=== PATIENT | male | born 1955 | race Hispanic/Latino ===

== ENCOUNTER 2017-03-23 06:50 | Day surgery (SDC) | payer OTHER ==
[2017-02-13 09:35] VITALS: BMI 25.9
[2017-03-23] MEDS ORDERED: ceFAZolin IV 2 gm in Dextrose 1 GM/50 ML BAG IVPB ONE (10:14)
[2017-03-23] MEDS ORDERED: Lactated Ringer's 1,000 ML IV ONE ×3 (10:35→13:45)
[2017-03-23] MEDS ORDERED: Midazolam 2 MG/2 ML VIAL ONE (10:36)
[2017-03-23] MEDS ORDERED: Propofol 10 mg/ml Inj (20 ML) ONE ×2 (10:36→13:15)
[2017-03-23] MEDS: Lidocaine 2% w Epi 1:100,000 Inj IJ ONE ×2 (10:55→11:02)
[2017-03-23] MEDS: Bupivacaine HCl 0.25% PF (10 ml) Inj ONE ×2 (10:55→11:02)
[2017-03-23] MEDS ORDERED: Bupivacaine HCl 0.25% PF (10 ml) Inj ONE (13:30)
--- NOTE | 2017-03-23 13:57 | PCM.SURG1 ---
Surgeon's Initial Post Op Note - Surgeon's Notes Surgeon: Annabelle Claims Correspondence Clerk: [id number] Type of Anesthesia: General Endo Pre-Operative Diagnosis: Incisional (Ventral) Hernia Operative Findings: Ventral Hernia Post-Operative Diagnosis: Incisional (Ventral) Hernia Operation Performed: Robotic assisted lap ventral hernia repair with mesh Specimen/Specimens Removed: hernia sac, mesh Estimated Blood Loss: EBL {In ML}: 10 Blood Products Given: N/A Drains Used: No Drains Post-Op Condition: Good Date of Surgery/Procedure: 03/23/17 Time of Surgery/Procedure: 10:25
[2017-03-23] MEDS ORDERED: Albuterol-Ipratrop 3 mg / 0.5 (3 ml) UD ONE (14:00)
[2017-03-23] MEDS: HYDROmorphone 0.5 mg/0.5 ml ISec IVP PRN ×4 (14:05→15:20)
[2017-03-23] MEDS ORDERED: Oxycodone/Acetaminophen 5/325 mg Tab PO ONE (14:15)
[2017-03-23] MEDS ORDERED: Albuterol-Ipratrop 3 mg / 0.5 (3 ml) UD INH STA (14:16)
[2017-03-23] MEDS ORDERED: HYDROmorphone 1 mg/ml ISec ONE ×3 (14:20→15:20)
[2017-03-23 17:26] VITALS: BP 130/79; PULSE 109; RESP 18; TEMP 97; O2SAT 95
--- NOTE | 2017-03-24 04:51 | OP ---
PROCEDURE DATE: 03/23/2017 PREOPERATIVE DIAGNOSES: 1. Incisional hernia. 2. Possible postoperative adhesion. POSTOPERATIVE DIAGNOSES: 1. Incisional hernia. 2. Possible postoperative adhesion. PROCEDURE DONE: 1. Robotic incisional hernia repair with mesh. 2. Robotic extensive lysis of adhesion. 3. Robotic removal of part of the old mesh. SURGEON: Dr. Alanis. EMAIL MARKETING PROCESSOR: JIMBO Jimenez and Roque Flannery, PGY-4 resident. TYPE OF ANESTHESIA: General endotracheal tube anesthesia. ESTIMATED BLOOD LOSS: Around 20 mL drained now in pathology. PATHOLOGY: 1. Hernia sac and content was sent for the pathology. 2. Old mesh. COMPLICATIONS: None. DRAIN: None. INTRAOPERATIVE FINDINGS: The patient had 5 x 5 cm incisional hernia at previous hernia repair site. The patient also had the eventration of the old mesh into the hernial sac. The patient also had extensive adhesion of the omentum and small bowel to the anterior abdominal wall and it took approximately 30 to 40 minutes extra for extensive lysis of adhesion. On intraoperative step, this 61-year-old male, who was diagnosed with incisional hernia and the patient was consented for the robotic incisional hernia repair with the mesh, brought to the OR, placed supine on the operating room table. After induction of the anesthesia, the abdomen was prepped and draped in the usual sterile fashion. The right upper quadrant incision was made using the Visiport technique. The peritoneal cavity was entered, pneumo was created. The 3 robotic camera port was placed in the left upper quadrant, left flank and left lower quadrant, robot was brought in, camera arm as well as arm 1 and arm 2 was docked. First, extensive lysis of adhesions was done of the omentum and the small bowel to the anterior abdominal wall. After proper lysis of adhesion, the eventration of the mesh was identified and the part of the mesh was removed in the hernial sac with content of the sac and pathology was sent off the table for the pathology. Now, #1 Prolene V-Loc suture was used to approximate the 5 x 5 cm size defect and the defect was sutured from the below umbilicus up to the mid upper abdomen and 2 layered repair was done and then 20 x 14 cm mesh was placed and mesh was implanted. After proper implantation of the mesh with a tacker, all the port was taken out under vision. Pneumo was deflated and there was proper hemostasis in each and every part of the procedure, and the skin was sutured with 4-0 Monocryl and dry sterile dressing was applied. The patient tolerated the procedure well. Count of the instruments was correct. There was no apparent complications. Lonny Alanis MD
== END 2017-03-23 17:32 | disposition home or self-care (01) ==
LOC: C.SDS 06:50
PROVIDERS: ATTEND Surgery Surgical Critical Care
DX: K43.2 Incisional hernia without obstruction or gangrene (principal); K66.0 Peritoneal adhesions (postprocedural) (postinfection); Z87.891 Personal history of nicotine dependence
CPT/HCPCS: 22999; 49654; 88302; J0690; J1100; J1170; J2001; J2250; J2405; J2704; J3010; J7120